=== PATIENT | female | born 1980 | race Two or more races ===

== ENCOUNTER 2018-08-16 17:06 | Emergency (ER) | payer SELFPAY ==
[2018-08-16 19:35] LABS: PLATELET COUNT 374 10^3/uL (150-400)
--- NOTE | 2018-08-16 20:43 | EDPHY ---
H & P Stated Complaint: ~6 wks preg;passed small clot ICU RN;hx 1st trim miscarriage x2; no cramps Time Seen by Provider: 08/16/18 18:43 HPI/ROS: Chief complaint: with vaginal clot passage History of present illness: This is a 37-year-old female, 5, para 2 who presents to the emergency department reporting she believes she is approximately 6 weeks and today passed a dark bloody clot. There has been mild discomfort. She denies precipitating factors. She denies alleviating factors. She denies other associated signs or symptoms including no fevers, no nausea or vomiting, no other abnormal vaginal discharge, no urinary symptoms. She has an appointment with an OBGYN approximately 2 weeks. Review of systems: A 10 point review of systems was obtained and other than described above was negative - Personal History LMP (Females 10-55): Current Tetanus Diphtheria and Acellular Pertussis (TDAP): Yes - Medical/Surgical History Hx Asthma: No Hx Chronic Respiratory Disease: No Hx Diabetes: No Hx Cardiac Disease: No Hx Renal Disease: No Hx Cirrhosis: No Hx Alcoholism: No Hx HIV/AIDS: No Hx Splenectomy or Spleen Trauma: No Other PMH: A2 - Social History Smoking Status: Never smoked - Physical Exam Exam: General Appearance: Alert, no distress. Eyes: Pupils equal and round no pallor or injection. ENT, Mouth: Mucous membranes moist. Respiratory: There are no retractions, lungs are clear to auscultation. Cardiovascular: Regular rate and rhythm. Gastrointestinal: Abdomen is soft and non tender, no masses, bowel sounds normal. Neurological: Alert and oriented x4. Skin: Warm and dry, no rashes. Musculoskeletal: Neck is supple non tender. Extremities are symmetrical, full range of motion. Psychiatric: Patient is oriented X 3, there is no agitation. Constitutional: Initial Vital Signs Temperature (C) 37.1 C 08/16/18 17:14 Heart Rate 92 08/16/18 17:14 Respiratory Rate 18 08/16/18 17:14 Blood Pressure 136/62 H 08/16/18 17:14 O2 Sat (%) 97 08/16/18 17:14 O2 Delivery Mode Room Air Allergies/Adverse Reactions: No Known Allergies Allergy (Verified 08/16/18 17:14) Home Medications: Medication Instructions Recorded NK [No Known Home Meds] 08/16/18 Medical Decision Making - Diagnostics Imaging Results: Imaging Impressions Obstetrics Ultrasound 08/16/18 19:03 Impression: of unknown location, with no visible intrauterine gestation or definite evidence of ectopic. Findings discussed with JAZMIN Veras 08/16/2018 at 20:28. Imaging: Discussed imaging studies w/ manager call center Radiologist ED Course/Re-evaluation: Patient is discussed with my secondary supervising physician Dr. Lloyd Parr. Patient presents to the emergency department reporting she is and noted clot passage today. She is nontoxic. Vital signs are stable. Physical exam is benign. Beta HCG is 709. The rest of her lab studies are unremarkable. Review of previous records show blood type is A positive, RhoGAM not indicated. Ultrasound is unremarkable. I have discussed with the patient it is not clear as to the exact cause of her symptoms. She will be discharged home. She is asked to follow up with an OBGYN for recheck of her hCG. Strict return precautions are given. The patient voiced understanding and agreement with plan. Differential Diagnosis: Included but not limited to miscarriage, threatened miscarriage, other disorders of including blighted ovum an ectopic , urinary tract disease - Data Points Laboratory Results: Laboratory Results 08/16/18 19:15 08/16/18 19:15 08/16/18 08/16/18 19:15 19:15 WBC 9.48 10^3/uL 10^3/uL (3.80-9.50) RBC 4.64 10^6/uL 10^6/uL (4.18-5.33) Hgb 13.1 g/dL g/dL (12.6-16.3) Hct 40.5 % % (38.0-47.0) MCV 87.3 fL fL (81.5-99.8) MCH 28.2 pg pg (27.9-34.1) MCHC 32.3 g/dL L g/dL (32.4-36.7) RDW 15.3 % H % (11.5-15.2) Plt Count 374 10^3/uL 10^3/uL (150-400) MPV 8.9 fL fL (8.7-11.7) Neut % (Auto) 65.5 % % (39.3-74.2) Lymph % (Auto) 24.1 % % (15.0-45.0) Piatt % (Auto) 8.4 % % (4.5-13.0) Eos % (Auto) 1.2 % % (0.6-7.6) Baso % (Auto) 0.4 % % (0.3-1.7) Nucleat RBC Rel Count 0.0 % % (0.0-0.2) Absolute Neuts (auto) 6.21 10^3/uL 10^3/uL (1.70-6.50) Absolute Lymphs (auto) 2.28 10^3/uL 10^3/uL (1.00-3.00) Absolute Monos (auto) 0.80 10^3/uL 10^3/uL (0.30-0.80) Absolute Eos (auto) 0.11 10^3/uL 10^3/uL (0.03-0.40) Absolute Basos (auto) 0.04 10^3/uL 10^3/uL (0.02-0.10) Absolute Nucleated RBC 0.00 10^3/uL 10^3/uL (0-0.01) Immature Gran % 0.4 % % (0.0-1.1) Immature Gran # 0.04 10^3/uL 10^3/uL (0.00-0.10) Sodium 135 mEq/L mEq/L (135-145) Potassium 3.8 mEq/L mEq/L (3.5-5.2) Chloride 104 mEq/L mEq/L (97-110) Carbon Dioxide 23 mEq/l mEq/l (22-31) Anion Gap 8 mEq/L mEq/L (6-14) BUN 11 mg/dL mg/dL (7-23) Creatinine 0.6 mg/dL mg/dL (0.6-1.0) Estimated GFR > 60 Glucose 97 mg/dL mg/dL (70-100) Calcium 8.7 mg/dL mg/dL (8.5-10.4) Beta HCG, Quant 709.71 mIU/mL H mIU/mL (0.00-4.83) Departure - Departure Disposition: Home, Routine, Self-Care Clinical Impression: Threatened miscarriage Condition: Good Instructions: Threatened Miscarriage (ED) Additional Instructions: Follow-up with an OBGYN in 2 days for continued evaluation and care You're beta HCG was 709 If symptoms worsen or new symptoms develop return to the emergency department for recheck Referrals: NONE *PRIMARY CARE P,. [Primary Care Provider] - As per Instructions Angelita Cruz MD [Medical Doctor] - As per Instructions Print Language: Uz[place]
[2018-08-16 21:55] VITALS: BP 142/88
== END 2018-08-16 21:55 | disposition home or self-care (01) ==
DX: O20.0 Threatened abortion (principal); Z3A.01 Less than 8 weeks gestation of pregnancy